=== PATIENT | female | born 1955 | race Caucasian/White ===

== ENCOUNTER → 2019-05-06 | Outpatient (CLI) | payer OTHER, MEDICARE ==
[~2019-05-06] MED LIST: ALPR1TAB72 PO; BIRTH CONTROL PILL PO; CALC-80 PO; ESCT10T PO; HYDR1TAB66 PO; MELO-195 PO; MTP25TSR PO; MULT-608 PO; NF-ESOM40C PO; TELM40T PO
== END ==
LOC: RAD 11:34
PROVIDERS: ATTEND Family Medicine
DX: Z12.31 Encounter for screening mammogram for malignant neoplasm of breast (principal)
CPT/HCPCS: 77067

== ENCOUNTER 2019-10-23 05:56 | Outpatient (CLI) | payer OTHER, MEDICARE ==
[~2019-10-23] VITALS: Ht 167.7 cm; Wt 75.0 kg
[2019-10-23] MEDS ORDERED: ALPR1TAB7 PO (14:04)
[2019-10-23] MEDS ORDERED: NABU750T PO (14:04)
[2019-10-23] MEDS ORDERED: TRAM50TA2 PO (14:04)
[2019-10-23] MEDS ORDERED: METO50TA15 PO (14:04)
[2019-10-23] MEDS ORDERED: TRAZ150T72 PO (14:04)
[2019-10-23] MEDS ORDERED: FOLI1TAB24 PO (14:04)
[2019-10-23] MEDS ORDERED: HYDR25TA4 PO (14:04)
[2019-10-23] MEDS ORDERED: DULO60CA59 PO (14:04)
[2019-10-23] MEDS ORDERED: METH2.5T PO (14:04)
[2019-10-23] MEDS ORDERED: AMLO5TAB9 PO (14:04)
== END 2019-10-23 14:06 ==
LOC: PREOP 05:56
PROVIDERS: ATTEND Surgery
DX: Z01.818 Encounter for other preprocedural examination (principal)

== ENCOUNTER 2019-10-29 10:40 | Day surgery (SDC) | payer MEDICARE, OTHER ==
[~2019-10-29] VITALS: Ht 167.7 cm; Wt 75.0 kg
[~2019-10-29 10:40] MED LIST changes: +ALPR1TAB7 PO; +AMLO5TAB9 PO; +DULO60CA59 PO; +FOLI1TAB24 PO; +HYDR25TA4 PO; +METH2.5T PO; +METO50TA15 PO; +NABU750T PO; +TRAM50TA2 PO; +TRAZ150T72 PO
[2019-10-29] MEDS ORDERED: LACTATED RINGERS 1,000 ML IV ONE (10:44)
[2019-10-29] MEDS ORDERED: LACTATED RINGERS 1,000 ML IV STA (10:49)
[2019-10-29] MEDS ORDERED: LIDOCAINE JELLY 2% 6 ML SYRINGE MM PRN (11:00)
[2019-10-29] MEDS ORDERED: HURRICAINE EXT TUBE (BENZOCAINE) XX PRN (11:00)
[2019-10-29 11:01] VITALS: BP 136/76
[2019-10-29] MEDS ORDERED: HURRICAINE EXT TUBE (BENZOCAINE) ONE (12:52)
[2019-10-29] MEDS ORDERED: proPOfol 200 MG/20 ML (DIPRIVAN) VIAL IV ONE (12:58)
[2019-10-29] MEDS ORDERED: MIDAZOLAM 2 MG/2 ML (VERSED) VIAL ONE (12:58)
--- NOTE | 2019-10-29 13:16 | Progress Note-Pre Operative ---
Pre-Operative Progress Note H&P Reviewed The H&P was reviewed, patient examined and no changes noted. Date Seen by Provider: Oct 29, 2019 Time Seen by Provider: 13:00 Date H&P Reviewed: Oct 29, 2019 Time H&P Reviewed: 13:00 Pre-Operative Diagnosis: GERD, screening o KVNG ADAMES MD Oct 29, 2019 13:16
[2019-10-29] MEDS ORDERED: PANT40TA2 PO (13:17)
--- NOTE | 2019-10-29 13:18 | Discharge Inst-Surgical ---
D/C Lap Instructions-ROSANGELA Follow Up Appt in 2 weeks Activity as tolerated High Fiber Diet 25g or more per day Avoid Alcohol, Caffeine, Spicy Odin and Acid foods. Drink 64 fluid oz or more of fluids per day. Symptoms to Report: Fever over 101 degree F, Nausea/Vomiting If any problems/questions: Contact your physician or go to Emergency Room KVNG ADAMES MD Oct 29, 2019 13:18
[2019-10-29] MEDS ORDERED: ONDANSETRON 4 MG/2 ML (SDV) Z0FRAN IVP PRN (13:30)
[2019-10-29] MEDS ORDERED: HYDROcodone/APAP 5 MG/325 MG (LORTAB) TAB PO PRN (13:30)
[2019-10-29] MEDS ORDERED: ACETAMINOPHEN 325 MG TABLET PO PRN (13:30)
[2019-10-29] MEDS ORDERED: morphine INJ 10 MG/ML 1ML (SYR OR VIAL) IVP PRN ×2 (13:30)
[2019-10-29 13:45] VITALS: BP 145/78
[2019-10-29 13:50] VITALS: BP 172/67
--- NOTE | 2019-10-29 14:07 | Progress Note-Post Operative ---
Post-Operative Progess Note Surgeon (s)/Primary Montessori Teacher (s) Surgeon KVNG ADAMES MD Primary Montessori Teacher: none Pre-Operative Diagnosis GERD, screening colo Post-Operative Diagnosis reflux esophagitis(stage 2), intact band, mild-moderate gastritis. Procedure & Operative Findings Date of Procedure 10/29/19 Procedure Performed/Findings EGD with bx. Colonoscopy. Anesthesia Type mac Estimated Blood Loss Estimated blood loss (mL): minimal Specimens/Packing Specimens Removed ge jxn, antrum KVNG ADAMES MD Oct 29, 2019 14:07
[2019-10-29 14:15] VITALS: BP 128/75
[2019-10-29 14:30] VITALS: BP 128/75
--- NOTE | 2019-10-29 15:08 | Anesthesia-General Post-Op ---
MAC Patient Condition Mental Status/LOC: Same as Preop Cardiovascular: Satisfactory Nausea/Vomiting: Absent Respiratory: Satisfactory Pain: Controlled Complications: Absent Post Op Complications Complications None Follow Up Care/Instructions Patient Instructions None needed. Anesthesiology Discharge Order Discharge Order Patient was seen after the procedure and she was doing well, no complaints, stable vital signs, no apparent adverse anesthesia problems. KATIE CROUCH DO Oct 29, 2019 15:08
--- NOTE | 2019-10-30 00:02 | OPERATIVE REPORT ---
DATE OF SERVICE: 10/29/2019 ATTENDING PRIMARY CARE PHYSICIAN: Jania Multani MD PREOPERATIVE DIAGNOSIS: Gastroesophageal reflux disease, screening colonoscopy. POSTOPERATIVE DIAGNOSES: Reflux esophagitis stage II, intact gastric pouch as well as band, no band slippage or erosion, mild to moderate gastritis. Chronic stage II external and internal hemorrhoids. Remainder of the colon and rectum were normal. PROCEDURE: EGD with biopsy, colonoscopy. SURGEON: Kvng Adames MD ANESTHESIA: Monitored anesthesia care. ESTIMATED BLOOD LOSS: Minimal. FINDINGS: Reflux esophagitis stage II, intact gastric pouch as well as band, no band slippage or erosion, mild to moderate gastritis. Chronic stage II external and internal hemorrhoids. Remainder of the colon and rectum were normal. DISPOSITION: The patient tolerated the procedure well. INDICATIONS: The patient is a 63-year-old female known to us. She has a history of hypertension, gastroesophageal reflux disease, urinary stress incontinence, depression and degenerative joint disease. She is status post laparoscopic adjustable gastric band with an Allergan AP standard band on 05/11/2011. She reports that she has had some worsening reflux with epigastric burning sensation; however, no episodes of nausea, no vomiting. She is also in need of a screening colonoscopy. She does not report any family history of colon cancer. DESCRIPTION OF PROCEDURE: The patient was brought to the endoscopy suite, laid in the left lateral decubitus position. After adequate IV pain and stated medications and monitored anesthesia care, the mouthpiece was applied. The endoscope was placed in the mouth, visualizing the pharynx and hypopharyngeal region. Vocal cords, epiglottis and vallecula identified and appeared to be normal. Endoscope was then gently intubated. Esophageal opening and esophagus insufflated. The endoscope was then advanced to the first, second and third portion of the esophagus at the level of the GE junction, a reflux esophagitis stage II identified. There were no ulcers or strictures identified in this region. A biopsy was taken of the GE junction with visualization of good hemostasis. The endoscope was then advanced into the gastric pouch, which appeared to be of normal size. There were no ulcerations. The endoscope was passed through the adjustable gastric band without any difficulty and endoscope retroflexed, visualizing a normal placement as well as no erosion. There was a mild to moderate gastritis. No formal ulcerations, polyps, or any neoplasms identified. A biopsy was taken of the antrum to rule out H. pylori with visualization of good hemostasis. The endoscope was then advanced to the pylorus and the first and second portion of the duodenum, which appeared normal with no distal obstructions. The endoscope was then slowly withdrawn while taking a second look and suctioning of residual air with no additional findings. Under the same anesthesia, we then proceeded with the colonoscopy portion of the procedure. Digital rectal examination was performed, which revealed mild chronic stage II external and internal hemorrhoids, not actively edematous nor inflamed and no bleeding. Normal sphincter tone was felt and no palpable masses. The endoscope was then intubated to the anus and rectum gently insufflated. The endoscope was then advanced to the valves of Craft of the rectum with no polyps or any neoplasms identified. The endoscope was then advanced through the sigmoid colon where no diverticulosis identified. The endoscope was then advanced to the remainder of the descending, transverse and ascending colon to the cecum. These segments were normal. There were no polyps or any neoplasms identified throughout the colon or rectum. The endoscope was then slowly withdrawn while taking a second look and suctioning of residual air with no additional findings. The patient tolerated the procedure well. For her reflux esophagitis and symptomatic gastroesophageal reflux disease, we will recommend the necessary lifestyle and diet accommodation including small and more frequent meals, avoidance of eating at night as well as head elevation while lying supine. We will also start her on Protonix 40 mg daily. If she has these symptoms despite proper diet and medical management, she may need to have some fluid removed from the band. Her colonoscopy was normal and we will recommend a high fiber diet with 25 grams of fiber daily as well as significant amounts of water to promote soft stools on a daily basis. She does not need another colonoscopy for another 10 years. Job ID: [id number] DocumentID: [id number] Dictated Date: 10/29/2019 13:52:42 Ob/Gyn Physician Date: 10/30/2019 00:01:44 Dictated By: KVNG ADAMES MD
== END 2019-10-29 14:30 | disposition home or self-care (01) ==
LOC: ENDO 10:40
PROVIDERS: ATTEND Surgery
DX: Z12.11 Encounter for screening for malignant neoplasm of colon (principal); K29.50 Unspecified chronic gastritis without bleeding; K21.0 Gastro-esophageal reflux disease with esophagitis; K31.89 Other diseases of stomach and duodenum; K64.4 Residual hemorrhoidal skin tags; K64.1 Second degree hemorrhoids; I10 Essential (primary) hypertension; M79.7 Fibromyalgia; F32.9 Major depressive disorder, single episode, unspecified; Z79.899 Other long term (current) drug therapy; Z98.84 Bariatric surgery status; Z88.0 Allergy status to penicillin; Z86.39 Personal history of other endocrine, nutritional and metabolic disease; Z83.3 Family history of diabetes mellitus; Z82.49 Family history of ischemic heart disease and other diseases of the circulatory system; Z82.3 Family history of stroke
CPT/HCPCS: 43239; G0121; 88305

== ENCOUNTER → 2022-05-01 | Outpatient (CLI) | payer MEDICARE, OTHER ==
[~2022-05-01] MED LIST changes: +AMLO-250 PO; -AMLO5TAB9 PO; -FOLI1TAB24 PO; +FOLI1TAB33 PO; +NABU-95 PO; -NABU750T PO; +PANT40TA2 PO; -TRAM50TA2 PO; +TRM50T PO
== END ==
LOC: LAB 14:27
PROVIDERS: ATTEND Nurse Practitioner Family
DX: I10 Essential (primary) hypertension (principal); R07.9 Chest pain, unspecified
CPT/HCPCS: 36415; 84484

== ENCOUNTER → 2023-06-19 | Outpatient (CLI) | payer MEDICARE, OTHER | LOC: CARD 08:55 | PROVIDERS: ATTEND Internal Medicine Cardiovascular Disease | DX: I10 Essential (primary) hypertension (principal); I25.10 Atherosclerotic heart disease of native coronary artery without angina pectoris | CPT/HCPCS: 93306 ==

== ENCOUNTER → 2023-07-11 | Outpatient (CLI) | payer MEDICARE, OTHER ==
[~2023-07-11] VITALS: Ht 167 cm; Wt 81.0 kg
[~2023-07-11] MED LIST changes: +CATHETER FLUSH 10 ML SYR IVP PRN; +REGADENOSON 0.4 MG/5 ML SYR IV ONE
[2023-07-11 12:45] VITALS: BP 142/81
[2023-07-11 13:01] VITALS: BP 141/74
--- NOTE | 2023-07-11 15:42 | Cardiology Stress Test Report ---
Stress Test Report Date of Procedure/Referring: Date of Procedure: Jul 11, 2023 PCP Dave Multani MD Admitting Physician Admitting Physician: Attending Physician: Dustin Galvin MD Baseline Heart Rate: 71 Baseline Blood Pressure: Blood Pressure Systolic: 141 Blood Pressure Diastolic: 74 Baseline Vitals Vital Signs Date Time Temp Pulse Resp B/P (MAP) Pulse Ox O2 Delivery O2 Flow Rate FiO2 07/11/23 12:45 88 17 142/81 (101) 99 Baseline EKG: Baseline EKG: NSR Summary After explaining the procedure to the patient, she signed a consent and then brought to the stress nuclear laboratory. Patient received 0.4 mg Lexiscan for stress test, ECG, heart rate and blood pressure were monitored continuously. Resting and stress dose of radio tracer were injected, imaging was acquired and reviewed in short axis, horizontal long axis and vertical long axis views. TID: 1.11 SSS: 3 SDS: 1 EF: 70 Patient tolerated Lexiscan well No significant ischemia or infarction on SPECT images Normal left ventricular size, ejection fraction 70% Copy Copies To 1: DAVE MULTANI MD, BASHAR J MD Jul 11, 2023 15:42
== END ==
LOC: CARD 10:01
PROVIDERS: ATTEND Internal Medicine Cardiovascular Disease
DX: I10 Essential (primary) hypertension (principal); I25.10 Atherosclerotic heart disease of native coronary artery without angina pectoris
CPT/HCPCS: 78452; 93017; A9502

== ENCOUNTER → 2023-10-08 | Outpatient (CLI) | payer MEDICARE, OTHER ==
[~2023-10-08] MED LIST changes: +CATHETER FLUSH 10 ML SYR IV PRN; -CATHETER FLUSH 10 ML SYR IVP PRN; +HOLD METFORMIN - RECEIVED CONTRAST 20 ML VIAL IV SCH; +IOHEXOL 350 MG/ML 100 ML (OMNIPAQUE 350) VIAL IV ONE; +NS 100 ML (IVPB) BAG IV ONE; -REGADENOSON 0.4 MG/5 ML SYR IV ONE
[2023-10-08 11:41] LABS: CREATININE SERUM 0.94 MG/DL (0.60-1.30)
--- NOTE | 2023-10-08 15:09 | Diagnostic Imaging Report ---
INDICATION: Aortic root dilatation. No prior studies are available for comparison. Aortic root is approximately 2.7 cm. Sinus of Valsalva is 3.1 cm. There is some mild dilatation of a descending thoracic aorta at 3.9 cm. Aortic arch and descending thoracic aorta are normal caliber. Is no dissection. Central pulmonary arteries are widely patent. There is no pericardial or pleural fluid identified. No pulmonary infiltrates, nodules or masses are identified. No axillary, hilar or mediastinal lymphadenopathy is detected. Upper abdomen demonstrates postoperative changes from the lap band procedure. There does appear to be some dilatation of the right renal collecting system and right renal pelvis, incompletely included on this study. IMPRESSION: 1. Thoracic aortic ectasia. No acute feature in the chest is identified. 2. Right-sided hydronephrosis, etiology indeterminate. CT of the urinary tracts may be useful for further evaluation. Dictated by: Dictated on workstation # [id number]
== END ==
LOC: RAD 11:15
PROVIDERS: ATTEND Physician Assistant
DX: I77.810 Thoracic aortic ectasia (principal); N13.30 Unspecified hydronephrosis
CPT/HCPCS: 36415; 71275; 82565; 84520